=== PATIENT | male | born 1955 ===

== ENCOUNTER → 2024-12-17 | Day surgery (SDC) | payer MEDICARE ==
[~2024-12-17] VITALS: Ht 172.7 cm; Wt 98.4 kg
[~2024-12-17] MED LIST: ALLOPURINOL100 MG PO; Balanced Salt Solution 500 ML OPH SCH; Cefuroxime Sodium 5 MG in BALANCED SALT IRRIG SOLN NO.2 0.5 ML,SYRINGE, DISPOSABLE, 10 ... IO SCH; DIOVAN40 MG PO; FLOMAX0.4 MG PO; HYDRALAZINE HYD50 MG PO; HYDROCODONE-AC1 EACH PO; IMDUR SA30 MG PO; LATANOPROST2.5 ML OP; LYRICA50 M1 PO; METFORMIN HYDR500 MG PO; Midazolam Hydrochloride 2 MG/2 ML VIAL IV ONE; OFLOXACIN 0.3% 5 ML BOTTLE ONE; OFLOXACIN 0.3% 5 ML BOTTLE OPH SCH; PHENYLEPHRINE/KETOROLAC 4 ML in Balanced Salt Solution 500 ML OPH SCH; POVIDONE IODINE 5% OPHTHALMIC 30 ML BOTTLE OPH SCH; PRILOSEC20 M1 PO; PROPRANOLOL HCL80 M1 PO; PROVIGIL200 MG PO; Phenylephrine Hydrochloride 2 ML BOT OPH ONE; Phenylephrine Hydrochloride 2 ML BOT OPH SCH; Proparacaine Hydrochloride 15 ML BOT OPH ONE; Proparacaine Hydrochloride 15 ML BOT OPH SCH; REQUIP2 MG PO; ROSUVASTATIN CA20 MG PO; SODIUM CHLORIDE 0.9% 1,000 ML IV SCH; TRELEGY ELLIPT1 EAC1 INH; TROPICAMIDE 3 ML BOT OPH ONE; TROPICAMIDE 3 ML BOT OPH SCH; Tetracaine Hydrochloride 0.5% 4 ML BOT OPH ONE; Tetracaine Hydrochloride 0.5% 4 ML BOT OPH SCH; ZETIA10 MG PO; prednisoLONE acetate 1% OPHTHALMIC 5 ML BOT OPH ONE; prednisoLONE acetate 1% OPHTHALMIC 5 ML BOT OPH SCH
[2024-12-17 08:21] VITALS: BP 116/93
[2024-12-17 08:54] VITALS: BP 112/47
[2024-12-17 09:09] VITALS: BP 112/58
[2024-12-17 09:24] VITALS: BP 98/47
== END | disposition home or self-care (01) ==
LOC: SDC 12-16 08:00
PROVIDERS: ATTEND Ophthalmology
DX: E11.36 Type 2 diabetes mellitus with diabetic cataract (principal); H25.11 Age-related nuclear cataract, right eye; I10 Essential (primary) hypertension; E11.39 Type 2 diabetes mellitus with other diabetic ophthalmic complication; H42 Glaucoma in diseases classified elsewhere; E78.00 Pure hypercholesterolemia, unspecified; J44.9 Chronic obstructive pulmonary disease, unspecified; K21.9 Gastro-esophageal reflux disease without esophagitis; F17.210 Nicotine dependence, cigarettes, uncomplicated; Z98.890 Other specified postprocedural states; Z79.891 Long term (current) use of opiate analgesic; Z79.84 Long term (current) use of oral hypoglycemic drugs; Z79.899 Other long term (current) drug therapy

== ENCOUNTER → 2025-01-14 | Day surgery (SDC) | payer MEDICARE ==
[~2025-01-14] VITALS: Ht 172.7 cm; Wt 98.0 kg
[~2025-01-14] MED LIST changes: +A-REDS PO; +ASPIRIN81 M1 PO; +Accuneb 0.1.25 MG/3 NEB; +EYE INJECTION OS; +GLUCOSAMINE &1 EACH PO; +INNOPRAN XL80 M2 PO; -LATANOPROST2.5 ML OP; +LATANOPROST2.5 ML OU; +MELATONIN5 M1 PO; +METFORMIN XR500 MG PO; +ROPINIROLE HYDRO1 MG PO; +SULFAMETHOXAZOLE PO; +VALSARTAN-HCTZ1 EAC3 PO; +VENT7GM INH; +VITAMIN B-121000 MC2 PO
[2025-01-14 07:15] VITALS: BP 157/69
[2025-01-14 09:02] VITALS: BP 144/54
[2025-01-14 09:17] VITALS: BP 147/60
[2025-01-14 09:29] VITALS: BP 142/64
== END | disposition home or self-care (01) ==
LOC: SDC 01-09 11:00
PROVIDERS: ATTEND Ophthalmology
DX: H25.12 Age-related nuclear cataract, left eye (principal); I10 Essential (primary) hypertension; I25.2 Old myocardial infarction; I25.10 Atherosclerotic heart disease of native coronary artery without angina pectoris; E78.00 Pure hypercholesterolemia, unspecified; N39.0 Urinary tract infection, site not specified; G47.30 Sleep apnea, unspecified; F17.210 Nicotine dependence, cigarettes, uncomplicated; Z79.82 Long term (current) use of aspirin; Z79.84 Long term (current) use of oral hypoglycemic drugs; Z79.891 Long term (current) use of opiate analgesic; Z79.899 Other long term (current) drug therapy; Z91.040 Latex allergy status; Z91.018 Allergy to other foods; Z91.041 Radiographic dye allergy status; Z98.890 Other specified postprocedural states